=== PATIENT | male | born 1990 | race Caucasian/White ===

== ENCOUNTER 2017-01-03 05:49 | Inpatient (IN) | payer MEDICAID ==
[2017-01-03 05:54] VITALS: BMI 32.1
[2017-01-03] MEDS ORDERED: Pantoprazole 40 MG in Sodium Chloride 0.9% 100 ML IV STA (06:07)
[2017-01-03] MEDS ORDERED: Sodium Chloride 0.9% 1,000 ML IV STA (06:07)
--- NOTE | 2017-01-03 06:10 | ED PDOC ---
Arrival/HPI - General Historian: Patient - History of Present Illness Time/Duration: Other (few days) Symptom Onset: Gradual Symptom Course: Unchanged Activities at Onset: Light Context: Home - General Chief Complaint: Chest Pain Time Seen by Provider: 01/03/17 05:54 - History of Present Illness Narrative History of Present Illness (Text): 01/03/17 06:07 iVdal Albrecht is a 26 year old male who presents to the Emergency department complaining of epigastric pain with vomiting for the past few days. Patient notes pain is worse after eating and with deep inspiration. Patient notes pain improves after vomiting. Patient denies any fever, chills, shortness of breath, diarrhea, urinary symptoms, back pain, neck pain, headache, dizziness, or any other complaints. (Amos Burk) Past Medical History - Provider Review Nursing Documentation Reviewed: Yes - Psychiatric Hx Substance Use: No - Surgical History Hx Appendectomy: Yes Other/Comment: hernia repair - Anesthesia Hx Anesthesia: Yes Hx Anesthesia Reactions: No Hx Malignant Hyperthermia: No Family/Social History - Physician Review Nursing Documentation Reviewed: Yes Family/Social History: Unknown Family HX Smoking Status: Never Smoked Hx Alcohol Use: Yes Frequency of alcohol use: Socially Hx Substance Use: No Allergies/Home Meds Allergies/Adverse Reactions: Allergies No Known Allergies Allergy (Verified 01/03/17 05:54) Home Medications: Home Meds Medication Instructions Recorded Confirmed No Known Home Med 01/03/17 01/03/17 Review of Systems - Physician Review All systems were reviewed & negative as marked: Yes - Review of Systems Constitutional: Normal. absent: Fevers Eyes: Normal ENT: Normal Respiratory: Normal. absent: SOB, Cough Gastrointestinal: Abdominal Pain, Vomiting Genitourinary Male: Normal. absent: Dysuria, Frequency, Hematuria, Urinary Output Changes Musculoskeletal: Normal. absent: Back Pain, Neck Pain Skin: Normal. absent: Rash Neurological: Normal. absent: Headache, Dizziness Endocrine: Normal Hemo/Lymphatic: Normal Psychiatric: Normal Physical Exam Vital Signs Reviewed: Yes Temperature: Afebrile Blood Pressure: Normal Pulse: Regular Respiratory Rate: Normal Appearance: Positive for: Well-Appearing, Non-Toxic, Comfortable Pain Distress: None Mental Status: Positive for: Alert and Oriented X 3 - Systems Exam Head: Present: Atraumatic, Normocephalic Pupils: Present: PERRL Extroacular Muscles: Present: EOMI Conjunctiva: Present: Normal Mouth: Present: Moist Mucous Membranes Neck: Present: Normal Range of Motion Respiratory/Chest: Present: Clear to Auscultation, Good Air Exchange. No: Respiratory Distress, Accessory Muscle Use Cardiovascular: Present: Regular Rate and Rhythm, Normal S1, S2. No: Murmurs Abdomen: Present: Normal Bowel Sounds. No: Tenderness, Distention, Peritoneal Signs Back: Present: Normal Inspection Upper Extremity: Present: Normal Inspection. No: Cyanosis, Edema Lower Extremity: Present: Normal Inspection. No: Edema Neurological: Present: GCS=15, CN II-XII Intact, Speech Normal Skin: Present: Warm, Dry, Normal Color. No: Rashes Psychiatric: Present: Alert, Oriented x 3, Normal Insight, Normal Concentration Vital Signs Temp Pulse Resp BP Pulse Ox 01/03/17 10:00 98.2 F 90 20 133/82 99 01/03/17 08:00 98.4 F 90 20 118/69 100 01/03/17 06:59 86 18 127/62 98 01/03/17 05:58 98.3 F 104 H 16 155/88 H 97 Medical Decision Making - EKG Interpretation Interpreted by ED Physician: Yes Type: 12 lead EKG - Transfer of Care Patient signed out to Dr:: pita ED Course and Treatment: 01/03/17 08:34 Patient endorsed to me from previous shift. Patient was re-examined by and I reviewed available labs and studies. On examination patient is having persistent pain, although improved after medication. On examination he has focal epigastric pain, no Romero's sign. LFTs and bilirubin are elevated. Amylase, lipase pending. Ddx includes biliary disease vs. pancreatitis vs. gastritis. Patient states to me that he has been heavy drinker, drinks daily. He is alert and oriented with no focal neuro deficits on examination. Plan to obtain CT abdomen/pelvis to evaluate for pancreatitis, and ultrasound, admit for iv hydration and gi consultation. (Debby Frances) 01/03/17 06:07 Impression: 26 year old male complaining of epigastric pain and vomiting for the past few days. Plan: -- EKG -- Chest X-ray -- Labs, cardiac enzymes, amylase, lipase -- UA -- IV fluids -- Zofran -- Toradol -- Protonix -- Reassess and disposition Progress Notes: Reviewed EKG, sinus tachycardia at [address]-segment elevations or depressions, no T-wave inversions, normal intervals. (Amos Burk) - Lab Interpretations Lab Results: 01/03/17 06:00 01/03/17 06:00 Lab Results 01/03/17 08:50: Urine Color Yellow, Urine Appearance Clear, Urine pH 6.0, Ur Specific [place] 1.025, Urine Protein Negative, Urine Glucose (UA) Negative, Urine Ketones Negative, Urine Blood Trace-intact H, Urine Nitrate Negative, Urine Bilirubin Moderate H, Urine Urobilinogen 1.0 H, Ur Leukocyte Esterase Negative, Urine RBC 1 - 3, Urine WBC 0 - 2, Ur Epithelial Cells 1 - 3 01/03/17 08:30: TSH 3rd Generation 2.12 01/03/17 08:30: Phosphorus 3.8, Magnesium 2.0, Triglycerides 117, Cholesterol 180, LDL Cholesterol Direct 110, HDL Cholesterol 58 01/03/17 06:00: Alcohol, Quantitative 109 H 01/03/17 06:00: Sodium 147, Potassium 4.1, Chloride 104, Carbon Dioxide 27, Anion Gap 20, BUN 13, Creatinine 1.0, Est GFR ( Amer) > 60, Est GFR (Non- Af Amer) > 60, Random Glucose 101, Calcium 9.8, Total Bilirubin 3.0 H, AST 621 H , ALT 553 H, Alkaline Phosphatase 156 H, Lactate Dehydrogenase 1512 H, Total Creatine Kinase 82, Troponin I < 0.01, Total Protein 8.3, Albumin 5.0 H, Globulin 3.4, Albumin/Globulin Ratio 1.5, Amylase 5770 H, Lipase 12403 H 01/03/17 06:00: PT 10.4, INR 0.96, APTT 28.2 01/03/17 06:00: WBC 13.5 H, RBC 5.32, Hgb 16.9, Hct 47.1, MCV 88.5, MCH 31.8, MCHC 35.9, RDW 12.7, Plt Count 361, MPV 9.4, Gran % 79.4 H, Lymph % (Auto) 9.4 L , [place] % (Auto) 10.2 H, Eos % (Auto) 0.7 L, Baso % (Auto) 0.3, Gran # 10.69 H, Lymph # 1.3, [place] # 1.4 H, Eos # 0.1, Baso # 0.04 - RAD Interpretation Radiology Orders: 01/03/17 06:07 CHEST PORTABLE [RAD] Stat 01/03/17 07:44 ABDOMEN COMPLETE [US] Stat 01/03/17 08:28 ABD & PELVIS W/O PO OR IV CONT [CT] Stat - Medication Orders Current Medication Orders: Diphenhydramine HCl (Benadryl) 25 mg IVP Q6 PRN PRN Reason: Itching / Pruritus Last Admin: 01/03/17 22:15 Dose: 25 mg Lactated Ringer's (Lactated Ringer's) 1,000 mls @ 200 mls/hr IV .Q5H JULIA Last Admin: 01/03/17 23:10 Dose: 200 mls/hr Morphine Sulfate (Morphine) 2 mg IVP Q4H PRN PRN Reason: Pain, severe (8-10) Ondansetron HCl (Zofran Inj) 4 mg IVP Q4H PRN PRN Reason: Nausea/Vomiting Pantoprazole Sodium (Protonix Inj) 40 mg IVP DAILY JULIA Discontinued Medications Pantoprazole Sodium 40 mg/ (Sodium Chloride) 100 mls @ 400 mls/hr IV STAT STA Stop: 01/03/17 06:21 Last Admin: 01/03/17 06:50 Dose: 400 mls/hr Sodium Chloride (Sodium Chloride 0.9%) 1,000 mls @ 100 mls/hr IV .Q10H STA Stop: 01/03/17 16:06 Last Admin: 01/03/17 06:51 Dose: 100 mls/hr Ketorolac Tromethamine (Toradol) 30 mg IVP STAT STA Stop: 01/03/17 06:08 Last Admin: 01/03/17 06:51 Dose: 30 mg Re-Assess: MAR Pain Assessment Document 01/03/17 07:51 RS (Rec: 01/03/17 14:42 RS [email or web address]) Pain Reassessment Is this a pain reassessment? Yes Sleep Is patient sleeping during reassessment? Yes Ondansetron HCl (Zofran Inj) 4 mg IVP STAT STA Stop: 01/03/17 06:08 Last Admin: 01/03/17 06:51 Dose: 4 mg Pantoprazole Sodium (Protonix Inj) Confirm Administered Dose 40 mg .ROUTE .STK- MED ONE Stop: 01/03/17 06:42 Last Admin: 01/03/17 06:55 Dose: - Scribe Statement The provider has reviewed the documentation as recorded by the Scribe - Scribe Statement Eva Vallecillo Provider Scribe Attestation: All medical record entries made by the Scribe were at my direction and personally dictated by me. I have reviewed the chart and agree that the record accurately reflects my personal performance of the history, physical exam, medical decision making, and the department course for this patient. I have also personally directed, reviewed, and agree with the discharge instructions and disposition. (Amos Burk) Disposition/Present on Arrival - Present on Arrival Any Indicators Present on Arrival: No History of DVT/PE: No History of Uncontrolled Diabetes: No Urinary Catheter: No History of Decub. Ulcer: No History Surgical Site Infection Following: None - Disposition Have Diagnosis and Disposition been Completed?: Yes Disposition Time: 07:00 - Disposition Diagnosis: Pancreatitis Disposition: HOSPITALIZED Condition: GOOD
[2017-01-03 06:44] LABS: BASO # 0.04 K/mm3 (0.0-2.0); BASO % 0.3 % (0.0-3.0); EOS # 0.1 (0.0-0.7); EOS % 0.7 % (1.5-5.0); GRAN # 10.69 (1.4-6.5); GRAN % 79.4 % (50.0-68.0); HEMATOCRIT 47.1 % (42.0-52.0); LYMPH # 1.3 (1.2-3.4); LYMPH % 9.4 % (22.0-35.0); MEAN CELL VOLUME 88.5 fl (80.0-105.0); MEAN CORPUSCULAR HEMOGLOBIN 31.8 pg (25.0-35.0); MEAN CORPUSCULAR HGB CONC 35.9 g/dl (31.0-37.0); MEAN PLATELET VOLUME 9.4 fl (7.0-11.0); MONO # 1.4 (0.1-0.6); MONO % 10.2 % (1.0-6.0); RED CELL DISTRIBUTION WIDTH 12.7 % (11.5-14.5); WHITE BLOOD COUNT 13.5 10^3/ul (4.5-11.0)
[2017-01-03 06:49] LABS: INR 0.96 (0.93-1.08); PARTIAL THROMBOPLASTIN TIME 28.2 Seconds (23.7-30.8)
[2017-01-03 07:04] LABS: ALB/GLOB RATIO 1.5 (1.1-1.8); ALKALINE PHOSPHATASE 156 U/L (38-126); ALT/SGPT 553 U/L (7-56); AST/SGOT 621 U/L (17-59); BLOOD UREA NITROGEN 13 mg/dL (7-21); CALCIUM 9.8 mg/dL (8.4-10.5); CARBON DIOXIDE 27 mmol/L (21-33); CHLORIDE 104 mmol/L (98-107); GFR AFRICAN-AMERICAN > 60; GLUCOSE,RANDOM 101 mg/dL (70-110); POTASSIUM 4.1 mmol/L (3.6-5.0); SODIUM 147 mmol/L (132-148); TOTAL PROTEIN 8.3 g/dL (5.8-8.3)
[2017-01-03 07:50] LABS: TROPONIN I < 0.01 ng/mL
[2017-01-03 08:52] LABS: URINE BILIRUBIN MODERATE (NEGATIVE); URINE BLOOD TRACE-INTACT (NEGATIVE); URINE GLUCOSE (UA) NEGATIVE (NEGATIVE); URINE KETONE NEGATIVE (NEGATIVE); URINE LEUKOCYTE ESTERASE NEGATIVE Leu/uL (NEGATIVE); URINE PROTEIN NEGATIVE mg/dL (<30 mg/dL)
[2017-01-03 08:53] LABS: URINE APPEARANCE CLEAR (CLEAR); URINE COLOR YELLOW (YELLOW)
[2017-01-03 09:00] LABS: URINE WBC 0 - 2 /hpf (0-6)
--- NOTE | 2017-01-03 09:14 | RAD ---
HISTORY: cp COMPARISON: No prior. FINDINGS: LUNGS: No active pulmonary disease. PLEURA: No significant pleural effusion identified, no pneumothorax apparent. CARDIOVASCULAR: Normal. OSSEOUS STRUCTURES: No significant abnormalities. VISUALIZED UPPER ABDOMEN: Normal. OTHER FINDINGS: None. IMPRESSION: No active disease.
--- NOTE | 2017-01-03 09:21 | CT ---
PROCEDURE: CT Abdomen and Pelvis without intravenous contrast HISTORY: severe upper abdominal pain COMPARISON: None. TECHNIQUE: Technique. Contrast Dose: Radiation dose: Total exam DLP = mGy-cm. This CT exam was performed using one or more of the following dose reduction techniques: Automated exposure control, adjustment of the mA and/or kV according to patient size, and/or use of iterative reconstruction technique. FINDINGS: LOWER THORAX: Unremarkable. LIVER: Unremarkable. No gross lesion or ductal dilatation. GALLBLADDER AND BILE DUCTS: Gallstones PANCREAS: Minimal peripancreatic fat infiltration; pancreatitis. . No gross lesion or ductal dilatation. SPLEEN: Unremarkable. ADRENALS: Unremarkable. No mass. KIDNEYS AND URETERS: Unremarkable. No hydronephrosis. No solid mass. VASCULATURE: Unremarkable. No aortic aneurysm. BOWEL: Unremarkable. No obstruction. No gross mural thickening. APPENDIX: Removed. PERITONEUM: Unremarkable. No free fluid. No free air. LYMPH NODES: Unremarkable. No enlarged lymph nodes. BLADDER: Unremarkable. REPRODUCTIVE: Unremarkable. BONES: No acute fracture. OTHER FINDINGS: Previous left inguinal hernia repair. IMPRESSION: Minimal peripancreatic fat infiltration; cannot exclude early pancreatitis. Cholelithiasis.
[2017-01-03 09:56] LABS: AMYLASE 5770 U/L (35-125)
[2017-01-03] MEDS ORDERED: Morphine 2 mg/ml ISec IVP PRN (10:14)
[2017-01-03 10:28] LABS: LIPASE 97896 U/L (23-300)
--- NOTE | 2017-01-03 10:39 | CP.PCM.HP ---
History of Present Illness - History of Present Illness History of Present Illness: CC: Abdominal pain x4 days HPI: 26 year old male with history of alcohol abuse, appendectomy, left inguinal hernia repair who was admitted for evaluation of abdominal pain which started 4 days ago. Patient states that he was in [place] until 4 days ago when he was working at the gym and all of a sudden felt minal umbilical pain. Pain was initially sharp, localized, non radiating, 10/10 associated with non bloody emesis and nausea. Patient reported that nausea resolved since then and now he has been complaining of pain every time he eats. He was given analgesics in ED and currently reports pain 2/10 which is localized. Denies fever, chills, chest pain, sob, changes in urinar or bowel habits. PMH:Alcohol abuse ALLERGY: Seasonal allergies. Recently he had an episode of severe allergic reaction and was advised to see cad draftsman as an outpatient. MEDS: None HOSPITALIZATION:In august for left inguinal hernia repair FAMILY HISTORY: Parents have HTN SOCIAL HISTORY: Denies smoking. Drinks alcohol from to Wednesday. Unable to quantify however states that he does not go thru withdrawal. Present on Admission - Present on Admission Any Indicators Present on Admission: No History of DVT/PE: No History of Uncontrolled Diabetes: No Urinary Catheter: No Decubitus Ulcer Present: No Review of Systems - Constitutional Constitutional: Lethargy, Malaise, Weakness. absent: Anorexia, Chills, Daytime Sleepiness, Excessive Sweating, Fatigue, Fever, Frequent Falls, Headache, Increased Appetite, Night Sweats, Sleep Apnea, Weight Gain, Weight Loss - EENT Eyes: absent: Blurred Vision, Change in Vision, Decreased Night Vision, Exophthalmos, Floaters, Irritation, Itchy Eyes, Requires Corrective Lenses, Sees Flashes, Spots in Vision Ears: absent: Decreased Hearing, Ear Discharge, Ear Pain, Dizziness Nose/Mouth/Throat: absent: Epistaxis, Nasal Congestion, Nasal Discharge, Nasal Obstruction, Sinus Pain, Sinus Pressure, Bleeding Gums, Dysphagia, Halitosis, Hoarsness, Lip Swelling, Odynophagia, Sore Throat, Throat Swelling - Cardiovascular Cardiovascular: absent: Chest Pain, Chest Pain at Rest, Chest Pain with Activity , Dyspnea on Exertion, Edema, Pain Radiating to Arm/Neck/Jaw, Leg Edema, Leg Ulcers, Lightheadedness, Orthopnea, Paroxysmal Nocturnal Dyspnea, Pedal Edema, Radiating Pain - Respiratory Respiratory: absent: Cough, Dyspnea, Hemoptysis, Dyspnea on Exertion, Wheezing, Snoring, Chest Congestion, Excessive Mucous Production - Gastrointestinal Gastrointestinal: absent: Abdominal Pain, Belching, Bloating, Change in Bowel Habits, Change in Stool Character, Constipation, Cramping, Diarrhea, Dyspepsia, Dysphagia, Fecal Incontinence, Heartburn, Hematemesis, Hematochezia - Genitourinary Genitourinary: absent: Change in Urinary Stream, Difficulty Urinating, Dysuria, Flank Pain, Urinary Incontinence, Urinary Frequency, Urinary Hesitance, Urinary Urgency, Voiding Freq/Small Amts, Hx Renal/Bladder Calculi - Musculoskeletal Musculoskeletal: absent: Abnormal Gait, Arthralgias, Atrophy, Back Pain, Deformity, Limited Range of Motion, Loss of Height, Muscle Cramps, Muscle Weakness, Radiating Pain into Limb, Stiffness - Integumentary Integumentary: absent: Alopecia, Bleeding Lesions, Change in Hair, Changing Lesions, Dry Skin, Erythema, Non-Healing Lesions, Photosensitivity, Pruritus - Neurological Neurological: absent: Abnormal Gait, Abnormal Hearing, Abnormal Movements, Burning Sensations, Confusion, Convulsions, Frequent Falls, Headaches, Lack of Coordination, Radicular Pain, Restless Legs - Psychiatric Psychiatric: absent: Abnormal Sleep Pattern, Anhedonia, Anxiety, Auditory Hallucinations, Change in Appetite, Change in Libido, Confusion, Hallucinations , Homicidal Ideation, Hopelessness - Endocrine Endocrine: absent: Change in Body Appearance, Change in Libido, Cold Intolorance , Fatigue, Flushing, Heat Intolorance, Increase in Ring/Shoe/Hat Size, Polyphagia, Polyuria - Hematologic/Lymphatic Hematologic: absent: Easy Bleeding, Easy Bruising, Lymphadenopathy Past Patient History - PSYCHIATRIC Hx Substance Use: No - SURGICAL HISTORY Hx Appendectomy: Yes Other/Comment: hernia repair - ANESTHESIA Hx Anesthesia: Yes Hx Anesthesia Reactions: No Hx Malignant Hyperthermia: No Meds Allergies/Adverse Reactions: Allergies Allergy/AdvReac Type Severity Reaction Status Date / Time No Known Allergies Allergy Verified 01/03/17 05:54 Physical Exam - Constitutional Appears: Non-toxic, No Acute Distress, Other - Head Exam Head Exam: ATRAUMATIC, NORMAL INSPECTION, NORMOCEPHALIC - Eye Exam Eye Exam: EOMI, Normal appearance Pupil Exam: PERRL - ENT Exam ENT Exam: Mucous Membranes Moist - Neck Exam Neck exam: Positive for: Full Rom, Normal Inspection - Respiratory Exam Respiratory Exam: Clear to Auscultation Bilateral, NORMAL BREATHING PATTERN. absent: Accessory Muscle Use, Prolonged Expiratory Phase - Cardiovascular Exam Cardiovascular Exam: REGULAR RHYTHM, +S1, +S2 - GI/Abdominal Exam GI & Abdominal Exam: Normal Bowel Sounds, Soft, Tenderness - Rectal Exam Rectal Exam: Deferred - Extremities Exam Extremities exam: Positive for: full ROM, normal inspection, pedal pulses present - Back Exam Back exam: FULL ROM, NORMAL INSPECTION. absent: CVA tenderness (L), CVA tenderness (R), paraspinal tenderness - Neurological Exam Neurological exam: Alert, CN II-XII Intact, Oriented x3 - Psychiatric Exam Psychiatric exam: Anxious, Normal Affect - Skin Skin Exam: Dry, Intact, Warm Results - Vital Signs Recent Vital Signs: Last Vital Signs Temp 98.4 F 01/03/17 08:00 Pulse 90 01/03/17 08:00 Resp 20 01/03/17 08:00 BP 118/69 01/03/17 08:00 Pulse Ox 100 01/03/17 08:00 - Labs Result Diagrams: 01/03/17 06:00 01/03/17 06:00 Assessment & Plan - Assessment and Plan (Free Text) Plan: 26 year old male with history of alcohol abuse who came for evaluation of periumblical / epigastric pain most likely due to pancreatitis. 1-Acute Pancreatitis: most likely secondary to alcohol abuse vs cholelithiasis. Lipase elevated. CT scan revealed possible early pancreatitis and cholelithiasis. Will make him NPO. Start IV hydration LR@200 cc/hr, analgesics and antiemetics. 2-Transaminitis: Most likely due to alcohol abuse. Will check hep panel and liver ultrasound 3-Leucocytosis: probably due o dehydration. He denies fever or cholls. Will follow up on blood culture. UA and CXR is clear. 4-GI prophylaxis: will start protonix. 5-DVT prophylaxis: will start SCD 6-Alcohol abuse: Counselling provided. Will check Mag and phos. Dispo: Upon discharge patient will follow up with PMD of choice.
[2017-01-03] MEDS: Lactated Ringer's 1,000 ML IV SCH ×3 (11:04→23:10)
[2017-01-03 11:39] LABS: PHOSPHOROUS 3.8 mg/dL (2.5-4.5)
[2017-01-03] MEDS: DiphenhydrAMINE 50 mg/ml Inj IVP PRN ×2 (12:36→22:15)
--- NOTE | 2017-01-03 13:04 | US ---
HISTORY: Upper abdominal pain. COMPARISON: No prior TECHNIQUE: Sonographic evaluation of the abdomen. FINDINGS: LIVER: Appears to measure and greater than 17 cm in CC dimension. Cm. Smooth contour however increased echogenicity consistent with fatty infiltration however other infiltrative hepatocellular disease process not excluded. No obvious hepatic mass or collection seen on images presented.. No intrahepatic bile duct dilatation. GALLBLADDER: There is a echogenic focus within the region the gallbladder neck that does not exhibit significant posterior acoustic shadowing. This most likely represents a non calcified cholesterol gallstone. No evidence of pericholecystic fluid collections or sonographic Romero sign COMMON BILE DUCT: Measures 2.6 mm. No stones. No dilatation. PANCREAS: Unremarkable as visualized. No mass. No ductal dilatation. RIGHT KIDNEY: Measures approximately 11.8 x 5.2 x 6.1cm. Normal echogenicity. No calculus, mass, or hydronephrosis. LEFT KIDNEY: Measures approximately 12.0 x 7.2 x 5.8cm. Normal echogenicity. No calculus, mass, or hydronephrosis. SPLEEN: Normal in size and contour. No mass. AORTA: Not visualized due to body habitus and bowel gas IVC: Not visualized due to body habitus and bowel gas OTHER FINDINGS: None. IMPRESSION: Suspect mild hepatomegaly. Fatty infiltration however other infiltrative hepatocellular disease process not excluded. Cholelithiasis as above. .
--- NOTE | 2017-01-03 14:18 | CARD ---
APPROVED REPORT EKG Measurement Heart [id number] <Conclusion> Sinus tachycardia Otherwise normal ECG
[2017-01-04] MEDS: Lactated Ringer's 1,000 ML IV SCH (04:55)
[2017-01-04 05:57] LABS: HEMATOCRIT 44.8 % (42.0-52.0); MEAN CELL VOLUME 89.4 fl (80.0-105.0); MEAN CORPUSCULAR HEMOGLOBIN 31.3 pg (25.0-35.0); MEAN PLATELET VOLUME 9.3 fl (7.0-11.0); RED CELL DISTRIBUTION WIDTH 12.8 % (11.5-14.5); WHITE BLOOD COUNT 8.1 10^3/ul (4.5-11.0)
[2017-01-04 06:10] LABS: ALB/GLOB RATIO 1.4 (1.1-1.8); ALKALINE PHOSPHATASE 230 U/L (38-126); ALT/SGPT 524 U/L (7-56); AST/SGOT 247 U/L (17-59); BILIRUBIN,TOTAL 5.9 mg/dL (0.2-1.3); BLOOD UREA NITROGEN 13 mg/dL (7-21); CALCIUM 9.3 mg/dL (8.4-10.5); CARBON DIOXIDE 28 mmol/L (21-33); CHLORIDE 104 mmol/L (98-107); GFR AFRICAN-AMERICAN > 60; GLUCOSE,RANDOM 80 mg/dL (70-110); POTASSIUM 4.1 mmol/L (3.6-5.0); SODIUM 141 mmol/L (132-148); TOTAL PROTEIN 6.5 g/dL (5.8-8.3)
[2017-01-04 08:36] LABS: BILIRUBIN,DIRECT 1.6 mg/dL (0.0-0.4)
--- NOTE | 2017-01-04 11:39 | CP.PCM.CON ---
<Francesca Black - Last Filed: 01/04/17 11:35> History of Present Illness - History of Present Illness History of Present Illness: Gastroenterology Fellow/PGY5 Consult Note 26 year old male with history of alcohol abuse presenting with abdominal pain. Patient describes sudden onset of severe epigastric pain radiating to back while working out at the gym, pain scale 10/10. Associated one episode of bilious vomitus. Denies fever, chills, sweats, hematemesis, diarrhea, constipation, hematochezia, melena, pruritis, confusion, tremors, or unintentional weight loss. Admits to increased daily alcohol intake over the last few years. No prior EGD or colonoscopy. Family- denies colon cancer Social- denies tobacco or illicit drug use, 6-7 shots of vodka daily for last 3- 4 years Surgery- appendectomy, left inguinal hernia repair Review of Systems - Review of Systems Review of Systems: 12-point review of systems negative except for as above Past Patient History - Past Social History Smoking Status: Never Smoked - MUSCULOSKELETAL/RHEUMATOLOGICAL Hx Falls: No - PSYCHIATRIC Hx Substance Use: No - SURGICAL HISTORY Hx Appendectomy: Yes Other/Comment: hernia repair - ANESTHESIA Hx Anesthesia: Yes Hx Anesthesia Reactions: No Hx Malignant Hyperthermia: No Meds Allergies/Adverse Reactions: Allergies Allergy/AdvReac Type Severity Reaction Status Date / Time No Known Allergies Allergy Verified 01/03/17 05:54 - Medications Medications: Current Medications Diphenhydramine HCl (Benadryl) 25 mg IVP Q6 PRN PRN Reason: Itching / Pruritus Last Admin: 01/03/17 22:15 Dose: 25 mg Lactated Ringer's (Lactated Ringer's) 1,000 mls @ 200 mls/hr IV .Q5H [facility] Last Admin: 01/04/17 04:55 Dose: 200 mls/hr Morphine Sulfate (Morphine) 2 mg IVP Q4H PRN PRN Reason: Pain, severe (8-10) Ondansetron HCl (Zofran Inj) 4 mg IVP Q4H PRN PRN Reason: Nausea/Vomiting Pantoprazole Sodium (Protonix Inj) 40 mg IVP DAILY [facility] Last Admin: 01/04/17 10:36 Dose: 40 mg Physical Exam - Constitutional Appears: Non-toxic, No Acute Distress - Head Exam Head Exam: ATRAUMATIC, NORMOCEPHALIC - Eye Exam Eye Exam: EOMI, PERRL Pupil Exam: PERRL. absent: Miosis, Mydriatic - ENT Exam ENT Exam: Mucous Membranes Moist, Normal Oropharynx - Neck Exam Neck exam: Positive for: Full Rom, Normal Inspection - Respiratory Exam Respiratory Exam: Clear to Auscultation Bilateral. absent: Rales, Rhonchi, Wheezes - Cardiovascular Exam Cardiovascular Exam: RRR, +S1, +S2. absent: Gallop, Rubs - GI/Abdominal Exam GI & Abdominal Exam: Normal Bowel Sounds, Soft. absent: Distended, Firm, Guarding, Organomegaly, Rebound, Rigid, Tenderness - Extremities Exam Extremities exam: Positive for: full ROM. Negative for: pedal edema - Neurological Exam Neurological exam: Alert - Psychiatric Exam Psychiatric exam: Normal Affect, Normal Mood - Skin Skin Exam: Dry, Intact, Normal Color, Warm Results - Vital Signs Recent Vital Signs: Last Vital Signs Temp 98.7 F 01/03/17 22:00 Pulse 60 01/04/17 08:14 Resp 19 01/04/17 08:14 BP 119/76 01/04/17 08:14 Pulse Ox 98 01/04/17 08:14 - Labs Result Diagrams: 01/04/17 05:20 01/04/17 05:20 Labs: Laboratory Results - last 24 hr 01/03/17 01/04/17 01/04/17 20:30 05:20 05:20 WBC 8.1 D RBC 5.01 Hgb 15.7 Hct 44.8 MCV 89.4 MCH 31.3 MCHC 35.0 RDW 12.8 Plt Count 292 MPV 9.3 Sodium 141 Potassium 4.1 Chloride 104 Carbon Dioxide 28 Anion Gap 13 BUN 13 Creatinine 0.9 Est GFR ( Amer) > 60 Est GFR (Non-Af Amer) > 60 Random Glucose 80 Calcium 9.3 Total Bilirubin 5.9 H Direct Bilirubin 1.6 H AST 247 H D ALT 524 H Alkaline Phosphatase 230 H D Total Protein 6.5 Albumin 3.9 Globulin 2.7 Albumin/Globulin Ratio 1.4 Acetaminophen < 10.0 L Assessment & Plan - Assessment and Plan (Free Text) Assessment: 26 year old male with history of alcohol abuse presenting with abdominal pain. Active treatment of mild pancreatitis likely alcohol induced, alcoholic hepatitis, and transaminitis with cholelithiasis. No prior EGD or colonoscopy. Plan: >continue aggressive IVFs and pain control >ordered HIDA scan >recommend surgery consult given elevated LFTs and GB neck stone >likely secondary to alcoholic hepatitis >DF 9.1 >daily LFTs, ordered direct bilirubin >negative hepatitis panel >supportive care: anti-emetics >will follow clinical course <Eren Fenton - Last Filed: 01/04/17 13:08> Meds - Medications Medications: Current Medications Diphenhydramine HCl (Benadryl) 25 mg IVP Q6 PRN PRN Reason: Itching / Pruritus Last Admin: 01/03/17 22:15 Dose: 25 mg Lactated Ringer's (Lactated Ringer's) 1,000 mls @ 200 mls/hr IV .Q5H [facility] Last Admin: 01/04/17 04:55 Dose: 200 mls/hr Morphine Sulfate (Morphine) 2 mg IVP Q4H PRN PRN Reason: Pain, severe (8-10) Ondansetron HCl (Zofran Inj) 4 mg IVP Q4H PRN PRN Reason: Nausea/Vomiting Pantoprazole Sodium (Protonix Inj) 40 mg IVP DAILY [facility] Last Admin: 01/04/17 10:36 Dose: 40 mg Results - Vital Signs Recent Vital Signs: Last Vital Signs Temp 98.7 F 01/03/17 22:00 Pulse 60 01/04/17 08:14 Resp 19 01/04/17 08:14 BP 119/76 01/04/17 08:14 Pulse Ox 98 01/04/17 08:14 - Labs Result Diagrams: 01/04/17 05:20 01/04/17 05:20 Labs: Laboratory Results - last 24 hr 01/03/17 01/04/17 01/04/17 20:30 05:20 05:20 WBC 8.1 D RBC 5.01 Hgb 15.7 Hct 44.8 MCV 89.4 MCH 31.3 MCHC 35.0 RDW 12.8 Plt Count 292 MPV 9.3 Sodium 141 Potassium 4.1 Chloride 104 Carbon Dioxide 28 Anion Gap 13 BUN 13 Creatinine 0.9 Est GFR ( Amer) > 60 Est GFR (Non-Af Amer) > 60 Random Glucose 80 Calcium 9.3 Total Bilirubin 5.9 H Direct Bilirubin 1.6 H AST 247 H D ALT 524 H Alkaline Phosphatase 230 H D Total Protein 6.5 Albumin 3.9 Globulin 2.7 Albumin/Globulin Ratio 1.4 Acetaminophen < 10.0 L Attending/Attestation - Attestation I have personally seen and examined this patient.: Yes I have fully participated in the care of the patient.: Yes I have reviewed all pertinent clinical information: Yes Notes (Text): 01/04/17 13:00 I have seen and examined patient with GI fellow and emergency medical technician. Agree with above documentation with the following additions. In brief this is a 26 year old male with history of ETOH abuse who presents with complaint of abdominal pain. He describes progressive epigastric 10/10 intensity abdominal pain that became worse following workout at the gym yesterday. He also admits to ongoing daily ETOH use (up to 7 liquor drinks per day). He denies associated nausea, vomiting, diarrhea, fever/chills, weight loss, herbal medication use, or change in bowel habits. No prior endoscopic evaluation. ETOH abuse Abdominal pain Acute pancreatitis Cholelithiasis Transaminitis Abdominal US and CT imaging reviewed by me showing minal-pancreatic fluid, cholelithiasis with stone present in GB neck - Clear liquid diet as tolerated - Continue with IVF hydration therapy - ETOH DF calculated, patient not candidate for steroid therapy - Suggest surgical evaluation given suspicion of gallstone pancreatitis in addition to ETOH related - Obtain HIDA - Fractionate bilirubin, obtain viral hepatitis panel, and continue to monitor LFTs - Will continue to monitor patient clinical course
[2017-01-04 15:03] LABS: LIPASE 811 U/L (23-300)
--- NOTE | 2017-01-04 15:20 | CP.PCM.CON ---
Past Patient History - Past Social History Smoking Status: Never Smoked - MUSCULOSKELETAL/RHEUMATOLOGICAL Hx Falls: No - PSYCHIATRIC Hx Substance Use: No - SURGICAL HISTORY Hx Appendectomy: Yes Other/Comment: hernia repair - ANESTHESIA Hx Anesthesia: Yes Hx Anesthesia Reactions: No Hx Malignant Hyperthermia: No Meds Allergies/Adverse Reactions: Allergies Allergy/AdvReac Type Severity Reaction Status Date / Time No Known Allergies Allergy Verified 01/03/17 05:54 - Medications Medications: Current Medications Diphenhydramine HCl (Benadryl) 25 mg IVP Q6 PRN PRN Reason: Itching / Pruritus Last Admin: 01/03/17 22:15 Dose: 25 mg Lactated Ringer's (Lactated Ringer's) 1,000 mls @ 200 mls/hr IV .Q5H [facility] Last Admin: 01/04/17 04:55 Dose: 200 mls/hr Morphine Sulfate (Morphine) 2 mg IVP Q4H PRN PRN Reason: Pain, severe (8-10) Ondansetron HCl (Zofran Inj) 4 mg IVP Q4H PRN PRN Reason: Nausea/Vomiting Pantoprazole Sodium (Protonix Inj) 40 mg IVP DAILY [facility] Last Admin: 01/04/17 10:36 Dose: 40 mg Physical Exam - Constitutional Appears: Non-toxic - Head Exam Head Exam: NORMAL INSPECTION - Eye Exam Eye Exam: EOMI, Normal appearance - ENT Exam ENT Exam: Mucous Membranes Moist - Neck Exam Neck exam: Positive for: Full Rom, Normal Inspection - Respiratory Exam Respiratory Exam: Clear to Auscultation Bilateral, NORMAL BREATHING PATTERN. absent: Accessory Muscle Use, Respiratory Distress - Cardiovascular Exam Cardiovascular Exam: REGULAR RHYTHM. absent: Bradycardia, Tachycardia - Neurological Exam Neurological exam: Alert, Oriented x3 - Psychiatric Exam Psychiatric exam: Normal Affect, Normal Mood - Skin Skin Exam: Dry, Intact, Normal Color, Warm Results - Vital Signs Recent Vital Signs: Last Vital Signs Temp 98.7 F 01/03/17 22:00 Pulse 60 01/04/17 08:14 Resp 19 01/04/17 08:14 BP 119/76 01/04/17 08:14 Pulse Ox 98 01/04/17 08:14 - Labs Result Diagrams: 01/04/17 05:20 01/04/17 05:20 Labs: Laboratory Results - last 24 hr 01/03/17 01/04/17 01/04/17 20:30 05:20 05:20 WBC 8.1 D RBC 5.01 Hgb 15.7 Hct 44.8 MCV 89.4 MCH 31.3 MCHC 35.0 RDW 12.8 Plt Count 292 MPV 9.3 Sodium 141 Potassium 4.1 Chloride 104 Carbon Dioxide 28 Anion Gap 13 BUN 13 Creatinine 0.9 Est GFR ( Amer) > 60 Est GFR (Non-Af Amer) > 60 Random Glucose 80 Calcium 9.3 Total Bilirubin 5.9 H Direct Bilirubin 1.6 H GGT 864 H AST 247 H D ALT 524 H Alkaline Phosphatase 230 H D Total Protein 6.5 Albumin 3.9 Globulin 2.7 Albumin/Globulin Ratio 1.4 Lipase 811 H Acetaminophen < 10.0 L Assessment & Plan - Date & Time Date: 01/04/17 Time: 15:18
--- NOTE | 2017-01-04 15:21 | CP.PCM.CON ---
History of Present Illness - History of Present Illness History of Present Illness: General Surgery Consult for Dr. Dior 26M presents with abdominal pain x4 days. USOH four days prior to admission 12/30, at the gym and felt mid-epigastric pain with one episode of emesis. Characterized as sharp, localized, non-radiating. Patient admitted to nausea. Denies F/C, CP, SOB, urinary issues, diarrhea, or constipation PMH: ETOH abuse PSH: appendectomy, L inguinal hernia repair Social History: never smoker. EtOH 6-7 shots of vodka daily for last 3-4 years, no illicit drug use FH: HTN, non-contributory Allergies: NKDA Past Patient History - Past Social History Smoking Status: Never Smoked - MUSCULOSKELETAL/RHEUMATOLOGICAL Hx Falls: No - PSYCHIATRIC Hx Substance Use: No - SURGICAL HISTORY Hx Appendectomy: Yes Other/Comment: hernia repair - ANESTHESIA Hx Anesthesia: Yes Hx Anesthesia Reactions: No Hx Malignant Hyperthermia: No Meds Allergies/Adverse Reactions: Allergies Allergy/AdvReac Type Severity Reaction Status Date / Time No Known Allergies Allergy Verified 01/03/17 05:54 - Medications Medications: Current Medications Diphenhydramine HCl (Benadryl) 25 mg IVP Q6 PRN PRN Reason: Itching / Pruritus Last Admin: 01/03/17 22:15 Dose: 25 mg Lactated Ringer's (Lactated Ringer's) 1,000 mls @ 200 mls/hr IV .Q5H [facility] Last Admin: 01/04/17 04:55 Dose: 200 mls/hr Morphine Sulfate (Morphine) 2 mg IVP Q4H PRN PRN Reason: Pain, severe (8-10) Ondansetron HCl (Zofran Inj) 4 mg IVP Q4H PRN PRN Reason: Nausea/Vomiting Pantoprazole Sodium (Protonix Inj) 40 mg IVP DAILY [facility] Last Admin: 01/04/17 10:36 Dose: 40 mg Physical Exam - Constitutional Appears: Non-toxic, No Acute Distress - Head Exam Head Exam: ATRAUMATIC - Eye Exam Eye Exam: EOMI, PERRL - ENT Exam ENT Exam: Mucous Membranes Moist - Respiratory Exam Respiratory Exam: Clear to Auscultation Bilateral, NORMAL BREATHING PATTERN - Cardiovascular Exam Cardiovascular Exam: REGULAR RHYTHM, +S1, +S2 - GI/Abdominal Exam GI & Abdominal Exam: Soft. absent: Distended, Firm, Rebound, Rigid, Tenderness Additional comments: surgical scars noted negative Romero's - Extremities Exam Extremities exam: Negative for: pedal edema, tenderness - Neurological Exam Neurological exam: Alert, Oriented x3 - Psychiatric Exam Psychiatric exam: Normal Affect, Normal Mood - Skin Skin Exam: Dry, Intact, Normal Color, Warm Results - Vital Signs Recent Vital Signs: Last Vital Signs Temp 98.7 F 01/03/17 22:00 Pulse 60 01/04/17 08:14 Resp 19 01/04/17 08:14 BP 119/76 01/04/17 08:14 Pulse Ox 98 01/04/17 08:14 - Labs Result Diagrams: 01/04/17 05:20 01/04/17 05:20 Labs: Laboratory Results - last 24 hr 01/03/17 01/04/17 01/04/17 20:30 05:20 05:20 WBC 8.1 D RBC 5.01 Hgb 15.7 Hct 44.8 MCV 89.4 MCH 31.3 MCHC 35.0 RDW 12.8 Plt Count 292 MPV 9.3 Sodium 141 Potassium 4.1 Chloride 104 Carbon Dioxide 28 Anion Gap 13 BUN 13 Creatinine 0.9 Est GFR ( Amer) > 60 Est GFR (Non-Af Amer) > 60 Random Glucose 80 Calcium 9.3 Total Bilirubin 5.9 H Direct Bilirubin 1.6 H AST 247 H D ALT 524 H Alkaline Phosphatase 230 H D Total Protein 6.5 Albumin 3.9 Globulin 2.7 Albumin/Globulin Ratio 1.4 Acetaminophen < 10.0 L Assessment & Plan - Assessment and Plan (Free Text) Assessment: 26M alcohol pancreatitis resolving, found to have cholelithiasis and elevated LFTs, downtrending CT scan: gallstones, inflamed pancreas HIDA: negative Abdominal US: cholelithiasis and fatty infiltration in liver On admission: AST/ALT 621/553 ALP 156 LDH: 1512 Amylase 5770 Lipase 15486 Today's pertinent labs: AST/ALT 247/524 ALP 230 Lipase 811 uptrending T bilrox Eldridge Eng, DO PGY1 Plan: c/w diet per GI recommendations Diet: CLD IVF: LR 200cc/hr PTX, Morphine for pain per medicine team c/w current medical management per medicine team f/u GI recommendations - Date & Time Date: 01/04/17 Time: 15:22
--- NOTE | 2017-01-04 16:26 | NM ---
PROCEDURE: Nuclear Medicine Hepatobiliary Scan HISTORY: evaluate for cystic duct obstruction COMPARISON: January 03, 2017. Abdominal ultrasound January 03, 2017. CT abdomen and pelvis TECHNIQUE: 6.9 mCi of technetium 99m Mebrofenin was administered intravenously. Planar images of the abdomen were obtained at 5 min intervals to 60 mins. Delayed images were also obtained. FINDINGS: LIVER: Timely and homogenous uptake. COMMON BILE DUCT: identified at 10 mins. GALLBLADDER: identified at 5 mins. SMALL BOWEL: Identified at 45 mins. IMPRESSION: Normal Hepatobiliary Scan. The cystic duct is patent.
--- NOTE | 2017-01-04 18:06 | CP.PCM.PN ---
Subjective - Date & Time of Evaluation Date of Evaluation: 01/04/17 Time of Evaluation: 10:00 - Subjective Subjective: patient was seen and examined bedside. states he is feeling better and offers no acute complaints. denies f/c,n/v, cp,sob. Objective - Vital Signs/Intake and Output Vital Signs (last 24 hours): Temp Pulse Resp BP Pulse Ox 98.7 F 60 19 119/76 98 01/03/17 22:00 01/04/17 08:14 01/04/17 08:14 01/04/17 08:14 01/04/17 08:14 Intake and Output: 01/04/17 01/04/17 06:59 18:59 Intake Total 2460 Output Total 800 Balance 1660 - Medications Medications: Current Medications Diphenhydramine HCl (Benadryl) 25 mg IVP Q6 PRN PRN Reason: Itching / Pruritus Last Admin: 01/03/17 22:15 Dose: 25 mg Lactated Ringer's (Lactated Ringer's) 1,000 mls @ 200 mls/hr IV .Q5H [facility] Last Admin: 01/04/17 04:55 Dose: 200 mls/hr Morphine Sulfate (Morphine) 2 mg IVP Q4H PRN PRN Reason: Pain, severe (8-10) Ondansetron HCl (Zofran Inj) 4 mg IVP Q4H PRN PRN Reason: Nausea/Vomiting Pantoprazole Sodium (Protonix Inj) 40 mg IVP DAILY [facility] Last Admin: 01/04/17 10:36 Dose: 40 mg - Labs Labs: 01/04/17 05:20 01/04/17 05:20 PT 10.4 Seconds (9.9-11.8) 01/03/17 06:00 INR 0.96 (0.93-1.08) 01/03/17 06:00 APTT 28.2 Seconds (23.7-30.8) 01/03/17 06:00 - Additional Findings Additional findings: - Constitutional Appears: Non-toxic, No Acute Distress - Head Exam Head Exam: ATRAUMATIC, NORMOCEPHALIC - Eye Exam Eye Exam: EOMI, PERRL Pupil Exam: PERRL. absent: Miosis, Mydriatic - ENT Exam ENT Exam: Mucous Membranes Moist, Normal Oropharynx - Neck Exam Neck exam: Positive for: Full Rom, Normal Inspection - Respiratory Exam Respiratory Exam: Clear to Auscultation Bilateral. absent: Rales, Rhonchi, Wheezes - Cardiovascular Exam Cardiovascular Exam: RRR, +S1, +S2. absent: Gallop, Rubs - GI/Abdominal Exam GI & Abdominal Exam: Normal Bowel Sounds, Soft. absent: Distended, Firm, Guarding, Organomegaly, Rebound, Rigid, Tenderness - Extremities Exam Extremities exam: Positive for: full ROM. Negative for: pedal edema - Neurological Exam Neurological exam: Alert - Psychiatric Exam Psychiatric exam: Normal Affect, Normal Mood - Skin Skin Exam: Dry, Intact, Normal Color, Warm Assessment and Plan - Assessment and Plan (Free Text) Assessment: 26yo M PMH ETOH abuse, PSH of appendectomy and L inguinal hernia repair who presents w/ epigastric pain likely 2/2 pancreatitis vs cholelithiasis. Transaminitis found on labs likely due to ETOH. Leukocytosis likely 2/2 pancreatitis. Plan: 1. Abdominal pain likely 2/2 pancreatitis vs cholecystic pain - LR 200 - HIDA scan showed patent cystic duct - CT abdomen showed minimal peripancreatic fat infiltration and cholelithiasis - Abd US showed fatty liver w/ mild hepatomegaly and suspected cholelithiasis - liquid diet as tolerated - morphine PRN for pain - zofran prn - ptx - GI consulted, recs appreciated - surgery consulted, recs appreciated 2. Transaminitis - hepatitis panel - trend LFTs - improving clinically 3. ETOH abuse - [facility] protocol - monitor for withdrawal symptoms - ETOH level on admission 109 liquid diet LR 200 PTX/SCDs Patient was seen, evaluated and discussed with attending, Dr. Dolly Camacho
[2017-01-05] MEDS: Lactated Ringer's 1,000 ML IV SCH (03:36)
[2017-01-05 07:13] LABS: ALB/GLOB RATIO 1.2 (1.1-1.8); ALKALINE PHOSPHATASE 210 U/L (38-126); ALT/SGPT 391 U/L (7-56); AST/SGOT 91 U/L (17-59); BILIRUBIN,TOTAL 2.2 mg/dL (0.2-1.3); BLOOD UREA NITROGEN 8 mg/dL (7-21); CALCIUM 9.3 mg/dL (8.4-10.5); CARBON DIOXIDE 29 mmol/L (21-33); CHLORIDE 100 mmol/L (95-110); GFR AFRICAN-AMERICAN > 60; GLUCOSE,RANDOM 92 mg/dL (70-110); SODIUM 139 mmol/L (132-148); TOTAL PROTEIN 6.8 g/dL (5.8-8.3)
[2017-01-05 07:35] LABS: HEMATOCRIT 43.3 % (42.0-52.0); MEAN CELL VOLUME 88.9 fl (80.0-105.0); MEAN CORPUSCULAR HEMOGLOBIN 31.8 pg (25.0-35.0); MEAN CORPUSCULAR HGB CONC 35.8 g/dl (31.0-37.0); MEAN PLATELET VOLUME 9.9 fl (7.0-11.0); RED CELL DISTRIBUTION WIDTH 12.5 % (11.5-14.5); WHITE BLOOD COUNT 10.3 10^3/ul (4.5-11.0)
--- NOTE | 2017-01-05 10:49 | CP.PCM.PN ---
Subjective - Date & Time of Evaluation Date of Evaluation: 01/05/17 Time of Evaluation: 10:46 - Subjective Subjective: General Surgery Progress Note for Dr. Dior Patient S&E at bedside. MILLY. Patient states he tolerated CLD overnight. Patient feels better. Patient is tolerating pain well. PAtient denies F/C, Vomiting, nausea, diarrhea. Patient was spoken to at bedside about the harmful effects of drinking too much alcohol. Patient was advised to stop drinking. Objective - Vital Signs/Intake and Output Vital Signs (last 24 hours): Temp Pulse Resp BP Pulse Ox 97.9 F 62 18 131/74 97 01/05/17 08:54 01/05/17 08:54 01/05/17 08:54 01/05/17 08:54 01/05/17 08:54 Intake and Output: 01/05/17 01/05/17 06:59 18:59 Intake Total 540 120 Balance 540 120 - Medications Medications: Current Medications Diphenhydramine HCl (Benadryl) 25 mg IVP Q6 PRN PRN Reason: Itching / Pruritus Last Admin: 01/03/17 22:15 Dose: 25 mg Lactated Ringer's (Lactated Ringer's) 1,000 mls @ 200 mls/hr IV .Q5H [facility] Last Admin: 01/05/17 03:36 Dose: 200 mls/hr Morphine Sulfate (Morphine) 2 mg IVP Q4H PRN PRN Reason: Pain, severe (8-10) Ondansetron HCl (Zofran Inj) 4 mg IVP Q4H PRN PRN Reason: Nausea/Vomiting Pantoprazole Sodium (Protonix Inj) 40 mg IVP DAILY [facility] Last Admin: 01/05/17 09:34 Dose: 40 mg - Labs Labs: 01/05/17 05:15 01/05/17 05:15 PT 10.4 Seconds (9.9-11.8) 01/03/17 06:00 INR 0.96 (0.93-1.08) 01/03/17 06:00 APTT 28.2 Seconds (23.7-30.8) 01/03/17 06:00 - Constitutional Appears: Non-toxic - Head Exam Head Exam: NORMAL INSPECTION - Eye Exam Eye Exam: EOMI, Normal appearance - ENT Exam ENT Exam: Mucous Membranes Moist - Neck Exam Neck Exam: Full ROM, Normal Inspection - Respiratory Exam Respiratory Exam: Clear to Ausculation Bilateral, NORMAL BREATHING PATTERN. absent: Accessory Muscle Use, Respiratory Distress - Cardiovascular Exam Cardiovascular Exam: REGULAR RHYTHM, +S1, +S2. absent: Bradycardia, Tachycardia - GI/Abdominal Exam GI & Abdominal Exam: Soft. absent: Firm, Guarding, Rigid, Tenderness - Extremities Exam Extremities Exam: Full ROM, Normal Inspection. absent: Pedal Edema - Neurological Exam Neurological Exam: Alert, Awake, Oriented x3 - Psychiatric Exam Psychiatric exam: Normal Affect, Normal Mood - Skin Skin Exam: Dry, Intact, Normal Color, Warm Assessment and Plan - Assessment and Plan (Free Text) Assessment: 26M alcohol pancreatitis resolving, found to have cholelithiasis and elevated LFTs, downtrending Plan: Alcohol abuse: advised to stop CT scan: gallstones, inflamed pancreas HIDA: negative Abdominal US: cholelithiasis and fatty infiltration in liver AST/ALT 91/391 ALP 210 No surgical interventions needed at this time Jazmyn Ventura DO PGY1
--- NOTE | 2017-01-05 15:16 | CP.PCM.PN ---
<Francesca Black - Last Filed: 01/05/17 15:13> Subjective - Date & Time of Evaluation Date of Evaluation: 01/05/17 Time of Evaluation: 15:13 - Subjective Subjective: Gastroenterology Fellow/PGY5 Progress Note Patient notes resolved abdominal pain. Tolerating full liquid diet. Notes normal bowel movement yesterday. A 12-point review of systems negative except for as above. Objective - Vital Signs/Intake and Output Vital Signs (last 24 hours): Temp Pulse Resp BP Pulse Ox 97.9 F 62 18 131/74 97 01/05/17 08:54 01/05/17 08:54 01/05/17 08:54 01/05/17 08:54 01/05/17 08:54 Intake and Output: 01/05/17 01/05/17 06:59 18:59 Intake Total 540 120 Balance 540 120 - Medications Medications: Current Medications Diphenhydramine HCl (Benadryl) 25 mg IVP Q6 PRN PRN Reason: Itching / Pruritus Last Admin: 01/03/17 22:15 Dose: 25 mg Lactated Ringer's (Lactated Ringer's) 1,000 mls @ 200 mls/hr IV .Q5H [facility] Last Admin: 01/05/17 03:36 Dose: 200 mls/hr Morphine Sulfate (Morphine) 2 mg IVP Q4H PRN PRN Reason: Pain, severe (8-10) Ondansetron HCl (Zofran Inj) 4 mg IVP Q4H PRN PRN Reason: Nausea/Vomiting Pantoprazole Sodium (Protonix Inj) 40 mg IVP DAILY [facility] Last Admin: 01/05/17 09:34 Dose: 40 mg - Labs Labs: 01/05/17 05:15 01/05/17 05:15 PT 10.4 Seconds (9.9-11.8) 01/03/17 06:00 INR 0.96 (0.93-1.08) 01/03/17 06:00 APTT 28.2 Seconds (23.7-30.8) 01/03/17 06:00 - Constitutional Appears: Non-toxic, No Acute Distress - Head Exam Head Exam: ATRAUMATIC, NORMOCEPHALIC - Eye Exam Eye Exam: EOMI, PERRL Pupil Exam: PERRL. absent: Miosis, Mydriatic - ENT Exam ENT Exam: Mucous Membranes Moist, Normal Oropharynx - Neck Exam Neck Exam: Full ROM, Normal Inspection - Respiratory Exam Respiratory Exam: Clear to Ausculation Bilateral. absent: Rales, Rhonchi, Wheezes - Cardiovascular Exam Cardiovascular Exam: RRR, +S1, +S2. absent: Gallop, Rubs - GI/Abdominal Exam GI & Abdominal Exam: Soft, Normal Bowel Sounds. absent: Distended, Firm, Guarding, Rigid, Tenderness, Organomegaly, Rebound - Extremities Exam Extremities Exam: Full ROM. absent: Pedal Edema - Neurological Exam Neurological Exam: Alert, Awake - Psychiatric Exam Psychiatric exam: Normal Affect, Normal Mood - Skin Skin Exam: Dry, Intact, Normal Color, Warm Assessment and Plan - Assessment and Plan (Free Text) Assessment: 26 year old male with history of alcohol abuse presenting with abdominal pain. Active treatment of mild alcohol/gallstone pancreatitis. No prior EGD or colonoscopy. Plan: >DF 9.1, not candidate for steroid therapy >normal HIDA scan >surgery managing- no intervention >improving LFTs >negative hepatitis panel >low fat diet >outpatient follow up with Dr. Mae in 2 weeks to repeat LFTs and re-assess symptoms >okay to discharge from GI standpoint <Faustino Mae - Last Filed: 01/05/17 15:47> Objective - Vital Signs/Intake and Output Vital Signs (last 24 hours): Temp Pulse Resp BP Pulse Ox 97.9 F 62 18 131/74 97 01/05/17 08:54 01/05/17 08:54 01/05/17 08:54 01/05/17 08:54 01/05/17 08:54 Intake and Output: 01/05/17 01/05/17 06:59 18:59 Intake Total 540 120 Balance 540 120 - Medications Medications: Current Medications Diphenhydramine HCl (Benadryl) 25 mg IVP Q6 PRN PRN Reason: Itching / Pruritus Last Admin: 01/03/17 22:15 Dose: 25 mg Lactated Ringer's (Lactated Ringer's) 1,000 mls @ 200 mls/hr IV .Q5H [facility] Last Admin: 01/05/17 03:36 Dose: 200 mls/hr Morphine Sulfate (Morphine) 2 mg IVP Q4H PRN PRN Reason: Pain, severe (8-10) Ondansetron HCl (Zofran Inj) 4 mg IVP Q4H PRN PRN Reason: Nausea/Vomiting Pantoprazole Sodium (Protonix Inj) 40 mg IVP DAILY [facility] Last Admin: 01/05/17 09:34 Dose: 40 mg - Labs Labs: 01/05/17 05:15 01/05/17 05:15 PT 10.4 Seconds (9.9-11.8) 01/03/17 06:00 INR 0.96 (0.93-1.08) 01/03/17 06:00 APTT 28.2 Seconds (23.7-30.8) 01/03/17 06:00 Attending/Attestation - Attestation I have personally seen and examined this patient.: Yes I have fully participated in the care of the patient.: Yes I have reviewed all pertinent clinical information, including history, physical exam and plan: Yes Notes (Text): 01/05/17 15:45 26 year old male with h/o Etoh abuse, cholelithiasis admitted with pancreatitis. 1. Acute pancreatitis 2. Cholelithiasis 3. Elevated lfts Plan: -low fat diet as tolerated -pain resolved -lfts downtrending -ok to discharge -recommend cholecystectomy electively -recommend etoh abstinence -recommend repeat lfts in 2 weeks -will sign off
[2017-01-05 17:39] VITALS: BP 119/71; PULSE 72; RESP 19; TEMP 97.3; O2SAT 98
--- NOTE | 2017-01-06 03:56 | CP.PCM.DIS ---
<BRANNON BA - Last Filed: 01/06/17 03:35> Provider - Provider Date of Admission: 01/03/17 09:39 Attending physician: Quinn Raymundo MD Primary care physician: NO PRIMARY CARE PROVIDER Time Spent in preparation of Discharge (in minutes): 45 Hospital Course - Lab Results Lab Results: Micro Results 01/03/17 20:30 Blood Blood Culture - Preliminary NO GROWTH AFTER 48 HOURS 01/03/17 20:15 Blood Blood Culture - Preliminary NO GROWTH AFTER 48 HOURS Most Recent Lab Values WBC 10.3 10^3/ul (4.5-11.0) D 01/05/17 05:15 RBC 4.87 10^6/uL (3.5-6.1) 01/05/17 05:15 Hgb 15.5 g/dL (14.0-18.0) 01/05/17 05:15 Hct 43.3 % (42.0-52.0) 01/05/17 05:15 MCV 88.9 fl (80.0-105.0) 01/05/17 05:15 MCH 31.8 pg (25.0-35.0) 01/05/17 05:15 MCHC 35.8 g/dl (31.0-37.0) 01/05/17 05:15 RDW 12.5 % (11.5-14.5) 01/05/17 05:15 Plt Count 306 10^3/uL (120.0-450.0) 01/05/17 05:15 MPV 9.9 fl (7.0-11.0) 01/05/17 05:15 Gran % 79.4 % (50.0-68.0) H 01/03/17 06:00 Lymph % (Auto) 9.4 % (22.0-35.0) L 01/03/17 06:00 Arthur % (Auto) 10.2 % (1.0-6.0) H 01/03/17 06:00 Eos % (Auto) 0.7 % (1.5-5.0) L 01/03/17 06:00 Baso % (Auto) 0.3 % (0.0-3.0) 01/03/17 06:00 Gran # 10.69 (1.4-6.5) H 01/03/17 06:00 Lymph # 1.3 (1.2-3.4) 01/03/17 06:00 Arthur # 1.4 (0.1-0.6) H 01/03/17 06:00 Eos # 0.1 (0.0-0.7) 01/03/17 06:00 Baso # 0.04 K/mm3 (0.0-2.0) 01/03/17 06:00 PT 10.4 Seconds (9.9-11.8) 01/03/17 06:00 INR 0.96 (0.93-1.08) 01/03/17 06:00 APTT 28.2 Seconds (23.7-30.8) 01/03/17 06:00 Sodium 139 mmol/L (132-148) 01/05/17 05:15 Potassium 4.0 mmol/L (3.6-5.0) 01/05/17 05:15 Chloride 100 mmol/L (95-110) 01/05/17 05:15 Carbon Dioxide 29 mmol/L (21-33) 01/05/17 05:15 Anion Gap 14 (10-20) 01/05/17 05:15 BUN 8 mg/dL (7-21) 01/05/17 05:15 Creatinine 0.8 mg/dL (0.5-1.4) 01/05/17 05:15 Est GFR ( Amer) > 60 01/05/17 05:15 Est GFR (Non-Af Amer) > 60 01/05/17 05:15 Random Glucose 92 mg/dL (70-110) 01/05/17 05:15 Calcium 9.3 mg/dL (8.4-10.5) 01/05/17 05:15 Phosphorus 3.8 mg/dL (2.5-4.5) 01/03/17 08:30 Magnesium 2.0 mg/dL (1.7-2.2) 01/03/17 08:30 Total Bilirubin 2.2 mg/dL (0.2-1.3) H 01/05/17 05:15 Direct Bilirubin 1.6 mg/dL (0.0-0.4) H 01/04/17 05:20 GGT 864 U/L (8-78) H 01/04/17 05:20 AST 91 U/L (17-59) H D 01/05/17 05:15 ALT 391 U/L (7-56) H 01/05/17 05:15 Alkaline Phosphatase 210 U/L (38-126) H 01/05/17 05:15 Lactate Dehydrogenase 1512 U/L (333-699) H 01/03/17 06:00 Total Creatine Kinase 82 U/L (35-230) 01/03/17 06:00 Troponin I < 0.01 ng/mL 01/03/17 06:00 Total Protein 6.8 g/dL (5.8-8.3) 01/05/17 05:15 Albumin 3.8 g/dL (3.0-4.8) 01/05/17 05:15 Globulin 3.0 gm/dL 01/05/17 05:15 Albumin/Globulin Ratio 1.2 (1.1-1.8) 01/05/17 05:15 Triglycerides 117 mg/dL (35-160) 01/03/17 08:30 Cholesterol 180 mg/dL (130-200) 01/03/17 08:30 LDL Cholesterol Direct 110 mg/dL (0-129) 01/03/17 08:30 HDL Cholesterol 58 mg/dL (29-60) 01/03/17 08:30 Amylase 5770 U/L (35-125) H 01/03/17 06:00 Lipase 811 U/L (23-300) H 01/04/17 05:20 TSH 3rd Generation 2.12 mIU/mL (0.46-4.68) 01/03/17 08:30 Urine Color Yellow (YELLOW) 01/03/17 08:50 Urine Appearance Clear (CLEAR) 01/03/17 08:50 Urine pH 6.0 (4.7-8.0) 01/03/17 08:50 Ur Specific [place] 1.025 (1.005-1.035) 01/03/17 08:50 Urine Protein Negative mg/dL (<30 mg/dL) 01/03/17 08:50 Urine Glucose (UA) Negative mg/dL (NEGATIVE) 01/03/17 08:50 Urine Ketones Negative mg/dL (NEGATIVE) 01/03/17 08:50 Urine Blood Trace-intact (NEGATIVE) H 01/03/17 08:50 Urine Nitrate Negative (NEGATIVE) 01/03/17 08:50 Urine Bilirubin Moderate (NEGATIVE) H 01/03/17 08:50 Urine Urobilinogen 1.0 E.U./dL (<1 E.U./dL) H 01/03/17 08:50 Ur Leukocyte Esterase Negative Jaziel/uL (NEGATIVE) 01/03/17 08:50 Urine RBC 1 - 3 /hpf (0-2) 01/03/17 08:50 Urine WBC 0 - 2 /hpf (0-6) 01/03/17 08:50 Ur Epithelial Cells 1 - 3 /hpf (0-5) 01/03/17 08:50 Urine Opiates Screen Negative (NEGATIVE) 01/04/17 22:02 Urine Methadone Screen Negative (NEGATIVE) 01/04/17 22:02 Acetaminophen < 10.0 ug/ml (10.0-20.0) L 01/03/17 20:30 Ur Barbiturates Screen Negative (NEGATIVE) 01/04/17 22:02 Ur Phencyclidine Scrn Negative (NEGATIVE) 01/04/17 22:02 Ur Amphetamines Screen Negative (NEGATIVE) 01/04/17 22:02 U Benzodiazepines Scrn Negative (NEGATIVE) 01/04/17 22:02 U Oth Cocaine Metabols Negative (NEGATIVE) 01/04/17 22:02 U Cannabinoids Screen Negative (NEGATIVE) 01/04/17 22:02 Alcohol, Quantitative 109 mg/dL (0-10) H 01/03/17 06:00 Hepatitis A IgM Ab Negative (NEGATIVE) 01/03/17 08:30 Hep Bs Antigen Negative (NEGATIVE) 01/03/17 08:30 Hep B Core IgM Ab Negative (NEGATIVE) 01/03/17 08:30 Hepatitis C Antibody Negative (NEGATIVE) 01/03/17 08:30 - Hospital Course Hospital Course: Mr Albrecht is a 26 year old male with history of alcohol abuse, appendectomy, left inguinal hernia repair who was admitted for evaluation of abdominal pain which started 4 days prior to admission. Patient states that he was in [place] until 4 days ago when he was working at the gym and all of a sudden felt minal umbilical pain. Later that day, the patient ate and was not feeling well and caused himself to throw-up. That night, the pt went out and admits to drinking ETOH a lot more than he usually does. State that the pain came back much worse the following day which is why he presented to ED. Pain was initially sharp, localized, non radiating, 10/10 associated with non bloody emesis and nausea. Patient reported that nausea resolved since then and now he has been complaining of pain every time he eats. He was given analgesics in ED and currently reports pain 2/10 which is localized. Denies fever, chills, chest pain, sob, changes in urinary or bowel habits. Patient was transferred to the med-surg floors and GI and Surgery were consulted. Pt was kept NPO, started on LR, and analgesics. abd US showed mild hepatomegaly and cholelithiasis (in gallbladder neck) w/o cbd dilation. CT abd showed peripancreatic fat infiltration indicative of pancreatitis. a HIDA scan was done and showed normal anatomy with a patent cystic duct. Transaminitis was also noted and worked up. Surgery rec no surgical intervention inpatient. GI rec low fat diet as tolerated, ETOH abstinence, elective cholecystectomy, and repeat LFTs. On morning of d/c, the patient is denying any pain, fevers/chills, n/v/d, or any complaints. Pt instructed about taking better care of his health and avoiding fatty, high cholesterol meals and cessation of ETOH or any other substances. Pharmacy Clerk referral was also ordered to recommend better lifestyle modifications. Pt is to [place] [facility] [place] 1 weeks for LFTs re-maxial, Dr. Mae and Dr. Dior. Prescribed thiamine, folic acid and a multivitamin. - Date & Time of H&P Date of H&P: 01/03/17 Time of H&P: 10:15 Discharge Exam - Additional Findings Additional findings: - Constitutional Appears: Non-toxic, No Acute Distress - Head Exam Head Exam: ATRAUMATIC, NORMOCEPHALIC - Eye Exam Eye Exam: EOMI, PERRL Pupil Exam: PERRL. absent: Miosis, Mydriatic - ENT Exam ENT Exam: Mucous Membranes Moist, Normal Oropharynx - Neck Exam Neck exam: Positive for: Full Rom, Normal Inspection - Respiratory Exam Respiratory Exam: Clear to Auscultation Bilateral. absent: Rales, Rhonchi, Wheezes - Cardiovascular Exam Cardiovascular Exam: RRR, +S1, +S2. absent: Gallop, Rubs - GI/Abdominal Exam GI & Abdominal Exam: Normal Bowel Sounds, Soft. absent: Distended, Firm, Guarding, Organomegaly, Rebound, Rigid, Tenderness - Extremities Exam Extremities exam: Positive for: full ROM. Negative for: pedal edema - Neurological Exam Neurological exam: Alert - Psychiatric Exam Psychiatric exam: Normal Affect, Normal Mood - Skin Skin Exam: Dry, Intact, Normal Color, Warm Discharge Plan - Discharge Medications Prescriptions: Folic Acid 1 mg PO DAILY #30 tab Multivitamin [Daily Isacc] 1 each PO DAILY #30 tablet Thiamine [Vitamin B1 Tab] 50 mg PO DAILY #30 tab - Follow Up Plan Condition: GOOD Disposition: HOME/ ROUTINE Instructions: Pancreatitis (DC) Additional Instructions: - please follow up with us at [facility] within 5 days to re-evaluate - please follow up with Dr. Mae (radar systems engineer) - please follow up with Dr. Dior (surgery) - please take thiamine, multivitamin and folic acid once daily - please avoid excessive alcohol and be advised to avoid high fat and high cholesterol foods - if you experience severe pain, n/v/d, fevers/chills or trouble passing stools , please go the ER for evaluation Thank you Brannon Ba PGY1 Dr. Raymundo, Attending Physician Referrals: [facility] [place] - 1 Week (Repeat LFTs for liver fxn eval) PCP,CLARK [Primary Care Provider] - Faustino Mae MD [Staff Provider] - Douglas Dior MD [Staff Provider] - <Quinn Raymundo - Last Filed: 01/06/17 07:46> Provider - Provider Date of Admission: 01/03/17 09:39 Attending physician: Quinn Raymundo MD Primary care physician: [facility] PRIMARY CARE PROVIDER Hospital Course - Lab Results Lab Results: Micro Results 01/03/17 20:30 Blood Blood Culture - Preliminary NO GROWTH AFTER 48 HOURS 01/03/17 20:15 Blood Blood Culture - Preliminary NO GROWTH AFTER 48 HOURS Most Recent Lab Values WBC 10.3 10^3/ul (4.5-11.0) D 01/05/17 05:15 RBC 4.87 10^6/uL (3.5-6.1) 01/05/17 05:15 Hgb 15.5 g/dL (14.0-18.0) 01/05/17 05:15 Hct 43.3 % (42.0-52.0) 01/05/17 05:15 MCV 88.9 fl (80.0-105.0) 01/05/17 05:15 MCH 31.8 pg (25.0-35.0) 01/05/17 05:15 MCHC 35.8 g/dl (31.0-37.0) 01/05/17 05:15 RDW 12.5 % (11.5-14.5) 01/05/17 05:15 Plt Count 306 10^3/uL (120.0-450.0) 01/05/17 05:15 MPV 9.9 fl (7.0-11.0) 01/05/17 05:15 Gran % 79.4 % (50.0-68.0) H 01/03/17 06:00 Lymph % (Auto) 9.4 % (22.0-35.0) L 01/03/17 06:00 Arthur % (Auto) 10.2 % (1.0-6.0) H 01/03/17 06:00 Eos % (Auto) 0.7 % (1.5-5.0) L 01/03/17 06:00 Baso % (Auto) 0.3 % (0.0-3.0) 01/03/17 06:00 Gran # 10.69 (1.4-6.5) H 01/03/17 06:00 Lymph # 1.3 (1.2-3.4) 01/03/17 06:00 Arthur # 1.4 (0.1-0.6) H 01/03/17 06:00 Eos # 0.1 (0.0-0.7) 01/03/17 06:00 Baso # 0.04 K/mm3 (0.0-2.0) 01/03/17 06:00 PT 10.4 Seconds (9.9-11.8) 01/03/17 06:00 INR 0.96 (0.93-1.08) 01/03/17 06:00 APTT 28.2 Seconds (23.7-30.8) 01/03/17 06:00 Sodium 139 mmol/L (132-148) 01/05/17 05:15 Potassium 4.0 mmol/L (3.6-5.0) 01/05/17 05:15 Chloride 100 mmol/L (95-110) 01/05/17 05:15 Carbon Dioxide 29 mmol/L (21-33) 01/05/17 05:15 Anion Gap 14 (10-20) 01/05/17 05:15 BUN 8 mg/dL (7-21) 01/05/17 05:15 Creatinine 0.8 mg/dL (0.5-1.4) 01/05/17 05:15 Est GFR ( Amer) > 60 01/05/17 05:15 Est GFR (Non-Af Amer) > 60 01/05/17 05:15 Random Glucose 92 mg/dL (70-110) 01/05/17 05:15 Calcium 9.3 mg/dL (8.4-10.5) 01/05/17 05:15 Phosphorus 3.8 mg/dL (2.5-4.5) 01/03/17 08:30 Magnesium 2.0 mg/dL (1.7-2.2) 01/03/17 08:30 Total Bilirubin 2.2 mg/dL (0.2-1.3) H 01/05/17 05:15 Direct Bilirubin 1.6 mg/dL (0.0-0.4) H 01/04/17 05:20 GGT 864 U/L (8-78) H 01/04/17 05:20 AST 91 U/L (17-59) H D 01/05/17 05:15 ALT 391 U/L (7-56) H 01/05/17 05:15 Alkaline Phosphatase 210 U/L (38-126) H 01/05/17 05:15 Lactate Dehydrogenase 1512 U/L (333-699) H 01/03/17 06:00 Total Creatine Kinase 82 U/L (35-230) 01/03/17 06:00 Troponin I < 0.01 ng/mL 01/03/17 06:00 Total Protein 6.8 g/dL (5.8-8.3) 01/05/17 05:15 Albumin 3.8 g/dL (3.0-4.8) 01/05/17 05:15 Globulin 3.0 gm/dL 01/05/17 05:15 Albumin/Globulin Ratio 1.2 (1.1-1.8) 01/05/17 05:15 Triglycerides 117 mg/dL (35-160) 01/03/17 08:30 Cholesterol 180 mg/dL (130-200) 01/03/17 08:30 LDL Cholesterol Direct 110 mg/dL (0-129) 01/03/17 08:30 HDL Cholesterol 58 mg/dL (29-60) 01/03/17 08:30 Amylase 5770 U/L (35-125) H 01/03/17 06:00 Lipase 811 U/L (23-300) H 01/04/17 05:20 TSH 3rd Generation 2.12 mIU/mL (0.46-4.68) 01/03/17 08:30 Urine Color Yellow (YELLOW) 01/03/17 08:50 Urine Appearance Clear (CLEAR) 01/03/17 08:50 Urine pH 6.0 (4.7-8.0) 01/03/17 08:50 Ur Specific [place] 1.025 (1.005-1.035) 01/03/17 08:50 Urine Protein Negative mg/dL (<30 mg/dL) 01/03/17 08:50 Urine Glucose (UA) Negative mg/dL (NEGATIVE) 01/03/17 08:50 Urine Ketones Negative mg/dL (NEGATIVE) 01/03/17 08:50 Urine Blood Trace-intact (NEGATIVE) H 01/03/17 08:50 Urine Nitrate Negative (NEGATIVE) 01/03/17 08:50 Urine Bilirubin Moderate (NEGATIVE) H 01/03/17 08:50 Urine Urobilinogen 1.0 E.U./dL (<1 E.U./dL) H 01/03/17 08:50 Ur Leukocyte Esterase Negative Jaziel/uL (NEGATIVE) 01/03/17 08:50 Urine RBC 1 - 3 /hpf (0-2) 01/03/17 08:50 Urine WBC 0 - 2 /hpf (0-6) 01/03/17 08:50 Ur Epithelial Cells 1 - 3 /hpf (0-5) 01/03/17 08:50 Urine Opiates Screen Negative (NEGATIVE) 01/04/17 22:02 Urine Methadone Screen Negative (NEGATIVE) 01/04/17 22:02 Acetaminophen < 10.0 ug/ml (10.0-20.0) L 01/03/17 20:30 Ur Barbiturates Screen Negative (NEGATIVE) 01/04/17 22:02 Ur Phencyclidine Scrn Negative (NEGATIVE) 01/04/17 22:02 Ur Amphetamines Screen Negative (NEGATIVE) 01/04/17 22:02 U Benzodiazepines Scrn Negative (NEGATIVE) 01/04/17 22:02 U Oth Cocaine Metabols Negative (NEGATIVE) 01/04/17 22:02 U Cannabinoids Screen Negative (NEGATIVE) 01/04/17 22:02 Alcohol, Quantitative 109 mg/dL (0-10) H 01/03/17 06:00 Hepatitis A IgM Ab Negative (NEGATIVE) 01/03/17 08:30 Hep Bs Antigen Negative (NEGATIVE) 01/03/17 08:30 Hep B Core IgM Ab Negative (NEGATIVE) 01/03/17 08:30 Hepatitis C Antibody Negative (NEGATIVE) 01/03/17 08:30 Attending/Attestation - Attestation I have personally seen and examined this patient.: Yes I have fully participated in the care of the patient.: Yes I have reviewed all pertinent clinical information, including history, physical exam and plan: Yes Notes (Text): 01/06/17 07:42 Attending note; Patient seen and examined with resident. Patient is a 26 year old male with history of alcohol abuse, appendectomy, left inguinal hernia repair who was admitted for evaluation of abdominal pain which started 4 days prior to admission. Found to have acute alcoholic pancreatitis. GI and surgery evaluation appreciated. Ultrasound showed gallstones. HIDA scan is negative. Case discussed with surgery in detail. Patient is currently pain free. LFTs improving. Tolerating diet. Advised to follow[place] with [facility] [place]. Patient is advised to follow-up with Dr. Mae in 2 weeks. Complete alcohol cessation is strongly advised. tin recovery worker evaluation appreciated. AA meetings/rehabilitation information given. Diagnosis; Alcohol abuse Pancreatitis Gallstones Elevated LFTs 01/06/17 07:45
== END 2017-01-05 17:45 | disposition home or self-care (01) | DRG 204 ==
LOC: ED 05:49 → ERH 09:39 → 3RNO 12:29
PROVIDERS: ADMIT Hospitalist; ATTEND Internal Medicine
DX: K85.20 Alcohol induced acute pancreatitis without necrosis or infection (principal); K76.0 Fatty (change of) liver, not elsewhere classified; F10.10 Alcohol abuse, uncomplicated; K80.20 Calculus of gallbladder without cholecystitis without obstruction; R79.89 Other specified abnormal findings of blood chemistry